=== PATIENT | male | born 1940 | race Caucasian/White ===

== ENCOUNTER → 2024-09-26 10:38 | Outpatient (CLI) | payer MEDICARE, OTHER, SELFPAY ==
--- NOTE | 2024-09-26 16:29 | ST.SWALLOW ---
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 According to the pt, foods stick in his throat, rumination of previously chewed foods occurs, pills come back up into throat often at times after several hours. Pt noted he can finish a meal, bend over and liquids will flow from his esophagus into his throat Pt and his son report that these occurrence's are becoming more frequent. Pt reported a PMH that includes bad acid reflux over many years. About 4 years ago, the pt was prescribed Pantoprozol, which he stated has been very effective. The pt reported that recently he underwent a EGD procedure. He further reported that A Zenker's pouch had been noted during the EGD. He was then referred for MBSS to confirm or r/o Zenkers diverticulum. Subjective Pt was seated in the flouroscopy chair with directions Observations and procedures explained for him. He indicated he understood and agreed to proceed. Patient Positioning Position View Lat-A/P Imaging Lateral View Textures Administered Trials Presented Thin Liquid via Spoon (IDDSI 0),Thin Liquid via Cup ( IDDSI 0) Barium Tablet No The IDDSI Framework Protocol: IDDSI.1 Oral Impairment Source: The Modified Barium Swallow Impairment Profile (MBSImP??) Lip Closure No labial escape Tongue Control Cohesive bolus between tongue to palatal seal During Bolus Hold Bolus Transport/ Brisk tongue motion Lingual Motion Oral Residue Complete oral clearance Initiation of Bolus head at posterior laryngeal surface of epiglottis Pharyngeal Swallow Additional Oral Oral phase of swallow observed to be WNL Impairment *OME and DKS were observed to be WNL. Observations *Dentition natural and in good hygiene *Mastication observed with rotary chew pattern. *Good bolus formation, control and AP transition. *Velopharyngeal closure was WNL. Pharyngeal Impairment Source: The Modified Barium Swallow Impairment Profile (MBSImP??) Soft Palate No bolus between soft palate & pharyngeal wall Elevation Laryngeal Elevation Part.sup.move.thyroid cart/part.approx.arytenoids to epiglot.petiole Anterior Hyoid Partial anterior movement Excursion Epiglottic Movement Complete inversion Laryngeal Vestibular Complete; no air/contrast in laryngeal vestibule Closure Pharyngeal Stripping Present - complete Wave Pharyngoesophageal Complete distention & complete duration; no obstruction Segment Opening of flow Tongue Base Trace column of contrast/air betwn tongue base & post. 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 The liquid from a single swallow filled the diverticulum and was observed to flow back into the pharynx several times. *Minimal contrast was observed to enter the esophagus. A chin tuck strategy was attempted and unsuccessful in clearing the diverticulum. The pt position was then changed to AP. A/P View The IDDSI Framework Protocol: IDDSI.1 A/P View Observations Esophageal Clearance Esophageal retention w/retrograde flow thru Upright Position pharyngoesoph segment Additional A-P Additional trials of barium contrast were not attempted Observations due to the diverticulum being filled with prior contrast. Additional barium would have likely overflowed into the pharynx and increase the risk for aspiration. Position strategies were attempted in effort to clear the contrast from the diverticulum: head turn right with swallow, head turn left with swallow, effortful swallow. All attempts to clear the contrast were unsuccessful. The diverticulum was unofficially measured (no radiologist available) at approximately 5 cm or 2 inches in width. The results and recommendations of the MBSS were described to the pt and his son via still pictures taken during the MBSS. Pt and son expressed appreciation and indicated they understood. All pt questions were addressed. Clinical Impressions Dysphagia Type Esophageal Findings See AP observations Patient Appropriate No for Therapy Recommendations Treatment Plan Recommended GI Consult,ENT Consult Referrals
== END ==
LOC: RAD 10:40
PROVIDERS: Referring Provider Surgery; Visit Provider Surgery
DX: K22.5 Diverticulum of esophagus, acquired (principal); R13.10 Dysphagia, unspecified
CPT/HCPCS: 74230; 92611